=== PATIENT | female | born 1965 | race Caucasian/White ===

== ENCOUNTER 2019-04-29 16:04 | Outpatient (CLI) | payer OTHER, SELFPAY ==
--- NOTE | ~2019-04-29 | XR_ITS ---
EXAMINATION: XR foot LT min 3V DATE: 04/29/2019 16:38 INDICATION: Lateral left foot pain. TECHNIQUE: 4 views of left foot were obtained. COMPARISON: Left foot radiographs 02/14/2017, 11/10/2016 FINDINGS: Bone alignment is normal. No acute fracture. There is an old healed fracture of base of fif th metatarsal. There is mild osteoarthritis of first metatarsophalangeal joint and some of the interp halangeal joints and midfoot joints. IMPRESSION: 1. Mild polyarticular osteoarthritis. Reviewed, dictated and finalized at location A. [employer] PROJECT ASSISTANT
--- NOTE | ~2019-04-29 | XR_ITS ---
EXAMINATION: XR chest 2V DATE: 04/29/2019 16:38 INDICATION: Left lower lateral rib pain. Cough. Tobacco use. TECHNIQUE: Frontal and lateral views of the chest were obtained. COMPARISON: Chest 2 views 02/14/2017 FINDINGS: A calcified left lung nodule is consistent with old granulomatous disease. No pleural effus ion or pneumothorax. The heart size is normal. There is a moderate-sized hiatal hernia. IMPRESSION: 1. Moderate-sized hiatal hernia. Reviewed, dictated and finalized at location A. IGERATION LEAD
[2019-04-29 17:18] LABS: Hematocrit 43.1 % (37.0-47.0); Mean Corpuscular HGB Conc 32.5 g/dl (32-36); Mean Corpuscular Hemoglobin 31.6 pg (26-34); Mean Corpuscular Volume 97.3 fl (80-100); Mean Platelet Volume 10.8 fl (7.4-10.4); Platelet Count Result 396 k/mm3 (150-375); Red Blood Count 4.43 M/mm3 (4.2-5.4); Red Cell Distribution Width 12.9 % (11.5-14.5); White Blood Count 15.1 K/mm3 (4.5-10.0)
== END 2019-04-29 16:05 | disposition home or self-care (01) ==
LOC: ANHIMG 16:08
PROVIDERS: PCP Emergency Medicine; Visit Provider Emergency Medicine
DX: M79.672 Pain in left foot (principal); M19.072 Primary osteoarthritis, left ankle and foot; R05 Cough; R07.81 Pleurodynia; Z72.0 Tobacco use; K44.9 Diaphragmatic hernia without obstruction or gangrene
CPT/HCPCS: 36415; 71046; 73630; 85027

== ENCOUNTER 2019-04-30 11:52 | Emergency (ER) | payer OTHER, SELFPAY ==
[2019-04-30 11:55] VITALS: BP 120/68; PULSE 83; RESP 16; TEMP 36.3; O2SAT 99
[2019-04-30 12:21] VITALS: PULSE 71
[2019-04-30] MEDS: KETOROLAC (*BKC) 60 MG/2 ML VIAL IM (13:13)
--- NOTE | 2019-04-30 13:25 | ED.GENADULT ---
HPI - General Adult General Chief complaint: Unspecified Stated complaint: chest pain for 4 days Time Seen by Provider: 04/30/19 12:10 Source: patient Mode of arrival: ambulatory Limitations: no limitations History of Present Illness HPI narrative: Patient is a 54-year-old female who presents with upper back pain that occurred after coughing had outpatient radiograph performed by primary care which was done yesterday and was normal patient on arrival to emergency department notes some aching pain worse with breathing and coughing notes some rhinorrhea and congestion as well denies other injuries or complaints and on arrival is resting comfortably in the room in no distress and does not take anything for her symptoms and has plan to follow-up with primary care tomorrow for reevaluation for the x-rays taken yesterday Related Data Allergies Allergy/AdvReac Type Severity Reaction Status Date / Time Sulfa (Sulfonamide Allergy Unknown Verified 11/10/16 16:38 Antibiotics) Review of Systems Review of Systems: Narrative: r All systems reviewed & are unremarkable except as noted in HPI and below PMFSH Social History Social History (Updated 04/30/19 @ 13:27 by Ehsan Calderón PA-C) Smoking status: Current every day smoker Gender identity (if verbalized by the patient): Female Exam Narrative: Exam Narrative: GENERAL: Well-appearing, well-nourished, and in no acute distress. HEAD: Normocephalic, atraumatic. EYES: PERRLA and EOMI. ENT: Nares clear, no rhinorrhea or epistaxis. Mucous membranes moist. Oropharynx without tonsillar hypertrophy exudate or other lesions. Bilateral TMs pearly castillo nonbulging NECK: Supple. No adenopathy or masses. CHEST: Clear to auscultation. No respiratory distress. No wheezes rales or rhonchi HEART: Regular rate and rhythm. No murmur heard. EXTREMITIES: Normal range of motion. No edema. Tenderness across the upper back SKIN: Warm, dry, no rash. NEURO: No focal deficits. Alert and oriented x3. Cranial nerves II through XII grossly intact. Normal speech and gait. Neurovascularly intact PSYCH: Normal mood and affect. Course Course Emergency Course: Patient in the room in no distress felt appropriate for discharge home Vital Signs Vital signs: Vital Signs Temperature 97.4 F L 04/30/19 11:55 Pulse Rate 83 02/25/20 11:55 Respiratory Rate 16 04/30/19 11:55 Blood Pressure 120/68 04/30/19 11:55 Pulse Oximetry 99 04/30/19 11:55 Temperature 97.4 F L 04/30/19 11:55 Pulse Rate 71 04/30/19 12:21 Respiratory Rate 16 04/30/19 11:55 Blood Pressure 120/68 04/30/19 11:55 Pulse Oximetry 99 04/30/19 11:55 Medical Decision Making MDM Narrative Medical decision making narrative: Patient in the room in no distress afebrile nontoxic-appearing normal vital signs felt to be appropriate for outpatient reevaluation with likely strain of the upper back given the symptomology Vital Signs Vital Signs: Vital Signs Temperature 97.4 F L 04/30/19 11:55 Pulse Rate 83 04/30/19 11:55 Respiratory Rate 16 04/30/19 11:55 Blood Pressure 120/68 04/30/19 11:55 Pulse Oximetry 99 04/30/19 11:55 Temperature 97.4 F L 04/30/19 11:55 Pulse Rate 71 04/30/19 12:21 Respiratory Rate 16 04/30/19 11:55 Blood Pressure 120/68 04/30/19 11:55 Pulse Oximetry 99 04/30/19 11:55 Discharge Plan Discharge Clinical Impression: Acute upper respiratory infection Patient Disposition: Home, Self-Care Condition: Stable Instructions: Antibiotic Form Additional Instructions: Follow up with your primary care provider within 1-2 days. Go to ER for shortness of breath, difficulty breathing, chest pain, fever/chills, weakness, nauseau/vomitting, etc. or any other concerns. Take any prescribed medications as directed. If you do not have a drug allergy to tylenol or motrin and can tolerate it then take tylenol or motrin as needed for discomfort/pain. Pr
[2019-04-30 13:42] VITALS: BP 99/68; PULSE 68; RESP 16; O2SAT 97
== END 2019-04-30 13:50 | disposition home or self-care (01) ==
PROVIDERS: Emergency Provider Emergency Medicine; PCP Emergency Medicine
DX: J06.9 Acute upper respiratory infection, unspecified (principal); F17.210 Nicotine dependence, cigarettes, uncomplicated
CPT/HCPCS: 87804; 96372; 99283; J1885

== ENCOUNTER 2020-01-08 13:18 | Emergency (ER) | payer OTHER, SELFPAY ==
[2020-01-08 13:47] VITALS: BP 101/79; PULSE 93; RESP 17; TEMP 36.3; O2SAT 99
[2020-01-08] MEDS: HYDROGEN PEROXIDE 3% SOLN(*SP) 473 ML BOTTLE (13:53)
--- NOTE | 2020-01-08 14:29 | ED.EAR ---
HPI - Ear Problem General Chief complaint: Ear Stated complaint: bug in ear Time Seen by Provider: 01/08/20 13:25 Source: patient Mode of arrival: ambulatory Limitations: no limitations History of Present Illness HPI Narrative: Patient presents with chief complaint of foreign body sensation in her left ear after hanging falls on a close line. Patient states that she feels something moving around in her ear. Patient reports a month ago she had a mosquito in her right ear with fluid drops and things in it so she does not feel moving in the right ear anymore but wonders if there is some remnants. Patient denies fever, chills, nausea, vomiting, diarrhea, bleeding or drainage from the ear or any other symptoms. Related Data Allergies Allergy/AdvReac Type Severity Reaction Status Date / Time Sulfa (Sulfonamide Allergy Unknown Verified 11/10/16 16:38 Antibiotics) Review of Systems Review of Systems: Narrative: CONSTITUTIONAL: Denies fever, chills, or sweats. EYES: Denies visual changes, redness, or discharge. ENT: Reports foreign body sensation to the left ear denies rhinorrhea, congestion, sore throat CARDIOVASCULAR: Denies chest pain, palpitations, or edema. RESPIRATORY: Denies cough or dyspnea. GASTROINTESTINAL: Denies abdominal pain, nausea, vomiting, or diarrhea. GENITOURINARY: Denies dysuria or hematuria. SKIN: Denies rash or itching. MUSCULOSKELETAL: Denies back pain, myalgia, or joint pain NEUROLOGIC: Denies headache, numbness, dizziness, or weakness. PSYCHIATRIC: Denies anxiety or depression. [facility] Social History Social History (Updated 04/30/19 @ 13:27 by Ehsan Calderón PA-C) Smoking status: Current every day smoker Gender identity (if verbalized by the patient): Female Exam Narrative: Exam Narrative: GENERAL: Well-appearing, well-nourished, and in no acute distress. HEAD: Normocephalic, atraumatic. EYES: PERRLA and EOMI. ENT: Nares clear, no rhinorrhea or epistaxis. Mucous membranes moist. Oropharynx without tonsillar hypertrophy exudate or other lesions. Bilateral TMs pearly castillo nonbulging. Small amount of crusting in the right ear canal without erythema or swelling of the ear canal. Left ear canal now clean after the spider was flushed out. NECK: Supple. No adenopathy or masses. CHEST: No tachypnea or evidence of shortness of breath. No respiratory distress. EXTREMITIES: Normal range of motion. No edema. SKIN: Warm, dry, no rash. NEURO: No focal deficits. Alert and oriented x3. PSYCH: Normal mood and affect. Course Vital Signs Vital signs: Vital Signs Temperature 97.4 F L 01/08/20 13:47 Pulse Rate 93 01/08/20 13:47 Respiratory Rate 17 01/08/20 13:47 Blood Pressure 101/79 01/08/20 13:47 Pulse Oximetry 99 01/08/20 13:47 Temperature 97.4 F L 01/08/20 13:47 Pulse Rate 93 01/08/20 13:47 Respiratory Rate 17 01/08/20 13:47 Blood Pressure 101/79 01/08/20 13:47 Pulse Oximetry 99 01/08/20 13:47 Medical Decision Making MDM Narrative Medical decision making narrative: Patient states she continues to manage drops and things in her ears. Patient instructed not to put anything in her ears and have murmur regular reevaluate in 1 week, sooner if she has any questions or concerns. Patient directed to return to emergency department if she has any emergent symptoms. Vital Signs Vital Signs: Vital Signs Temperature 97.4 F L 01/08/20 13:47 Pulse Rate 93 01/08/20 13:47 Respiratory Rate 17 01/08/20 13:47 Blood Pressure 101/79 01/08/20 13:47 Pulse Oximetry 99 01/08/20 13:47 Temperature 97.4 F L 01/08/20 13:47 Pulse Rate 93 01/08/20 13:47 Respiratory Rate 17 01/08/20 13:47 Blood Pressure 101/79 01/08/20 13:47 Pulse Oximetry 99 01/08/20 13:47 Discharge Plan Discharge Clinical Impression: Acute foreign body of left ear Qualifiers: Encounter type: initial encounter Qualified Code(s): T16.2XXA - Foreign body in left ear, init
[2020-01-08 15:09] VITALS: BP 104/63; PULSE 98; RESP 15; O2SAT 100
== END 2020-01-08 15:11 | disposition home or self-care (01) ==
PROVIDERS: Emergency Provider Emergency Medicine; PCP Emergency Medicine
DX: T16.2XXA Foreign body in left ear, initial encounter (principal); F17.200 Nicotine dependence, unspecified, uncomplicated
CPT/HCPCS: 99282; A9270

== ENCOUNTER 2020-09-08 21:24 | Emergency (ER) | payer OTHER, SELFPAY ==
[2020-09-08 21:31] VITALS: BP 128/85; PULSE 116; RESP 16; TEMP 36.4; O2SAT 98
[2020-09-09 00:46] VITALS: BP 109/74; PULSE 81; RESP 18; TEMP 36.6; O2SAT 96
--- NOTE | 2020-09-09 00:49 | ED.ALLEREA ---
HPI - Allergic Reaction General Chief complaint: Allergic Reaction Stated complaint: bee sting Time Seen by Provider: 09/09/20 00:44 Source: patient and family Mode of arrival: ambulatory Limitations: no limitations History of Present Illness HPI narrative: Patient got stung by a bee at the ankle bilaterally 30 minutes prior to arrival to the emergency room. Which is roughly 8 hours ago. Currently patient is asymptomatic and concerned about the possibility of reaction. Patient denies any trouble swallowing, breathing, headache, palpitation, itching. Related Data Allergies Allergy/AdvReac Type Severity Reaction Status Date / Time Sulfa (Sulfonamide Allergy Unknown Unknown Verified 09/09/20 00:53 Antibiotics) Review of Systems Review of Systems: Narrative: CONSTITUTIONAL: Denies fever, chills, or sweats. EYES: Denies visual changes, redness, or discharge. ENT: Denies rhinorrhea, congestion, sore throat, or otalgia. CARDIOVASCULAR: Denies chest pain, palpitations, or edema. RESPIRATORY: Denies cough or dyspnea. GASTROINTESTINAL: Denies abdominal pain, nausea, vomiting, or diarrhea. GENITOURINARY: Denies dysuria or hematuria. SKIN: Denies rash or itching. MUSCULOSKELETAL: Denies back pain, joint pain, or myalgia. NEUROLOGIC: Denies headache, numbness, or weakness. PSYCHIATRIC: Denies anxiety or depression. REPLACED BY [facility] Social History Social History Smoking status: Current every day smoker Gender identity (if verbalized by the patient): Female Exam Narrative: Exam Narrative: General appearance: Well-developed, well-nourished Skin: Normal color, slight redness at the medial side of left ankle, not warm, slightly tender, consistent with local allergic reaction. Head: Normocephalic, nontraumatic Eyes: Clear conjunctiva ENT: Oropharynx normal, ears normal, nose normal Neck: Supple, nontender Chest and respiratory: Airway patent, no respiratory distress, no accessory muscle use Heart: Regular rate/rhythm Abdomen: Soft, nontender, no organomegaly, quiet bowel sounds Vascular: Normal peripheral pulses, normal capillary refill. Musculoskeletal: Normal range of motion, nontender back Neurologic: Alert and oriented ?3, Course Course Emergency Course: Stable Vital Signs Vital signs: Vital Signs Temperature 36.4 C 09/08/20 21:31 Pulse Rate 116 H 09/08/20 21:31 Respiratory Rate 16 09/08/20 21:31 Blood Pressure 128/85 09/08/20 21:31 Pulse Oximetry 98 09/08/20 21:31 Temperature 36.4 C 09/08/20 21:31 Pulse Rate 116 H 09/08/20 21:31 Respiratory Rate 16 09/08/20 21:31 Blood Pressure 128/85 09/08/20 21:31 Pulse Oximetry 98 09/08/20 21:31 MDM - Allergic Reaction MDM Narrative Medical decision making narrative: Bee sting with local allergic reaction Critical Care Time Critical Care Time Critical Care Time: No Discharge Plan Discharge Clinical Impression: Allergic reaction Qualifiers: Encounter type: subsequent encounter Qualified Code(s): T78.40XD - Allergy, unspecified, subsequent encounter Patient Disposition: Home, Self-Care Condition: Stable Instructions: Insect Bite or Sting (ED) Additional Instructions: Return if symptoms are worsening , call your family physician for appointment, take Tylenol as as needed for aches and pain, continue home medications. Prescriptions: New prednisone 20 mg tablet 40 mg PO DAILY 5 Days Qty: 10 RF: 0 No Action ibuprofen [IBU] 600 mg tablet 600 mg PO Q6H PRN (Reason: fever or pain) Qty: 7 RF: 0 Follow-up/Referrals: Osvaldo Marshall MD [Primary Care Provider] -
[2020-09-09] MEDS: diphenhydrAMINE HCl CAP 25 MG CAPSULE 50 MG PO (01:25)
[2020-09-09] MEDS: predniSONE 20 MG TABLET 60 MG PO (01:25)
[2020-09-09 01:29] VITALS: BP 110/79; PULSE 76; RESP 18; O2SAT 96
== END 2020-09-09 01:32 | disposition home or self-care (01) ==
PROVIDERS: Emergency Provider Emergency Medicine; PCP Emergency Medicine
DX: T63.441A Toxic effect of venom of bees, accidental (unintentional), initial encounter (principal); F17.200 Nicotine dependence, unspecified, uncomplicated
CPT/HCPCS: 99283; A9270; J7512

== ENCOUNTER 2020-12-18 12:55 | Outpatient (CLI) | payer OTHER, SELFPAY ==
--- NOTE | ~2020-12-18 | XR_ITS ---
XR chest 2V DATE: 12/18/2020 13:38 INDICATION: Left-sided chest pain, shortness of breath. Tobacco use. TECHNIQUE: PA and lateral views COMPARISON: April 29, 2021 view chest FINDINGS: Normal heart size. No hilar or mediastinal enlargement. There is mild discoid atelectasis or scarring in the right lower lobe. No pulmonary consolidation, pl eural effusion, pulmonary vascular congestion or pneumothorax. Calcified pulmonary granuloma, left lo wer lung. Moderate hiatal hernia. Diffuse osteopenia. IMPRESSION: Mild discoid atelectasis or scarring, right lower lobe; otherwise no active cardiac pulmo nary disease Hiatal hernia Reviewed, dictated and finalized at location A. IMPRESSION: Mild discoid atelectasis or scarring, right lower lobe; otherwise n o active cardiac pulmonary disease Hiatal hernia
== END 2020-12-18 12:56 | disposition home or self-care (01) ==
LOC: ANHIMG 13:03
PROVIDERS: PCP Emergency Medicine; Visit Provider Emergency Medicine
DX: Z72.0 Tobacco use (principal); J98.11 Atelectasis; K44.9 Diaphragmatic hernia without obstruction or gangrene
CPT/HCPCS: 71046

== ENCOUNTER 2020-12-24 16:53 | Emergency (ER) | payer OTHER, SELFPAY ==
--- NOTE | ~2020-12-24 | CT_ITS ---
EXAMINATION: CTA chest PE protocol DATE: 12/24/2020 19:25 INDICATION: Left-sided chest pain TECHNIQUE: Computed tomography angiography (CTA) of the chest was performed with 100 mL Omnipaque-350 intravenous contrast timed to evaluate the pulmonary arteries. Coronal maximum intensity projection 3D-reconstructions were created by the technologist. The dose-length product (DLP) was 286.37 mGy-cm. Automated exposure control and iterative reconstruction technique were employed. COMPARISON: None. FINDINGS: The pulmonary arteries are well-opacified. No pulmonary embolism is identified. There is de pendent atelectasis. No pleural effusion or pneumothorax is identified. There is a large hiatal herni a. No pathologically enlarged thoracic lymph nodes are identified. The heart size is normal. Cysts of the liver have enlarged and measure up to 4.8 cm in the right hepatic lobe. A healing left sixth rib fracture is noted. There is mild thoracic spondylosis. IMPRESSION: 1. No pulmonary embolism or acute cardiopulmonary abnormality. Reviewed, dictated and finalized at location A.
[2020-12-24 17:14] VITALS: BP 119/96; PULSE 91; RESP 18; TEMP 36.2; O2SAT 99
--- NOTE | 2020-12-24 17:51 | ED.GENADULT ---
HPI - General Adult General Chief complaint: Unspecified Stated complaint: Possible Blood Clot in the Lung Time Seen by Provider: 12/24/20 17:46 History of Present Illness HPI narrative: Patient 55-year-old female presents emerged part with chief complaint of left-sided chest wall pain. Patient reports that several weeks ago she fell struck the left side of her chest and reports that she has had rib pain since then. Patient states that she is seen her primary care physician who did an outpatient chest x-ray and told her there was concern for possible blood clot in her lungs. Patient states the pain has been worse with movement and improved with rest and reports she also has left-sided aching in her chest. Patient denies fever denies chills patient reports that she had no prior history of PEs in the past. Related Data Home Medications Medication Instructions Recorded Confirmed ergocalciferol (vitamin D2) 12/24/20 12/24/20 fluticasone propionate INTRANASAL 12/24/20 Allergies Allergy/AdvReac Type Severity Reaction Status Date / Time Sulfa (Sulfonamide Allergy Unknown Unknown Verified 12/24/20 17:46 Antibiotics) Review of Systems Review of Systems: A 10 system review of systems was completed on the patient and is negative except for what is stated in the HPI. Nursing and ancillary documentation was reviewed. [facility] Social History Social History Smoking status: Current every day smoker Gender identity (if verbalized by the patient): Female Exam Narrative: GENERAL: Well-appearing, well-nourished, and in no acute distress. HEAD: Normocephalic, atraumatic. EYES: PERRLA and EOMI. ENT: Nares clear, no rhinorrhea or epistaxis. Mucous membranes moist. NECK: Supple. CHEST: Clear to auscultation. No respiratory distress. Chest wall is tender to palpation on the left side. There is no subcu emphysema there is no crepitance HEART: Regular rate and rhythm. No murmur heard. Normal peripheral pulses. ABDOMEN: Soft, nontender, nondistended, normal active bowel sounds. EXTREMITIES: Normal range of motion. No edema. SKIN: Warm, dry, no rash. NEURO: No focal deficits. Alert and oriented x3. PSYCH: Normal mood and affect. Course Course Emergency Course: CT scan shows no evidence of pulmonary contusion, hemothorax, pneumothorax. There is evidence of a left sided sixth rib fracture Vital Signs Vital signs: Vital Signs Temperature 36.2 C L 12/24/20 17:14 Pulse Rate 91 12/24/20 17:14 Respiratory Rate 18 12/24/20 17:14 Blood Pressure 119/96 H 12/24/20 17:14 Pulse Oximetry 99 12/24/20 17:14 Temperature 36.2 C L 12/24/20 17:14 Pulse Rate 60 12/24/20 18:40 Respiratory Rate 16 12/24/20 18:40 Blood Pressure 128/73 12/24/20 18:40 Pulse Oximetry 96 12/24/20 18:40 Medical Decision Making Vital Signs Vital Signs: Vital Signs Temperature 36.2 C L 12/24/20 17:14 Pulse Rate 91 12/24/20 17:14 Respiratory Rate 18 12/24/20 17:14 Blood Pressure 119/96 H 12/24/20 17:14 Pulse Oximetry 99 12/24/20 17:14 Temperature 36.2 C L 12/24/20 17:14 Pulse Rate 60 12/24/20 18:40 Respiratory Rate 16 12/24/20 18:40 Blood Pressure 128/73 12/24/20 18:40 Pulse Oximetry 96 12/24/20 18:40 Lab Data Result diagrams: 12/24/20 18:20 12/24/20 18:20 Labs: Lab Results 12/24/20 12/24/20 12/24/20 Range/Units 18:20 18:20 18:20 WBC 10.6 H (4.5-10.0) K/mm3 RBC 4.27 (4.2-5.4) M/mm3 Hgb 13.9 (12.0-15.0) g/dL Hct 40.7 (37.0-47.0) % MCV 95.3 (80-100) fl MCH 32.6 (26-34) pg MCHC 34.2 (32-36) g/dl RDW 12.4 (11.5-14.5) % Plt Count 409 H (150-375) k/mm3 MPV 9.8 (7.4-10.4) fl Immature Gran % (Auto) 0.3 (0-0.5) % Neut % (Auto) 58.9 (45.5-73.1) % Lymph % (Auto) 32.9 (18.3-44.2) % [place] % (Auto) 5.6 (2.6-8.5) % Eos % (Auto) 1
--- NOTE | 2020-12-24 17:52 | ECG_ITS ---
Measurements Intervals [place] Rate: 54 P: 11 DE: 183 QRS: 46 QRSD: 91 T: 34 QT: 431 QTc: 411 Interpretive Statements SINUS BRADYCARDIA WITH SINUS ARRHYTHMIA MINIMAL Q WAVES- INF/LAT LEADS BASELINE ARTIFACT- I, III, AVL BORDERLINE ECG Electronically Signed On 12-24-2020 20:04:25 CDT by Mikal Gan D.O.
[2020-12-24] MEDS: SODIUM CHLORIDE 0.9% IV 1,000 ML 999 ML IV CONT (18:25)
--- NOTE | 2020-12-24 18:34 | PC.NURSE ---
Moved to room #4 for groundwater monitoring technician
[2020-12-24 18:40] VITALS: BP 128/73; PULSE 60; RESP 16; O2SAT 96
[2020-12-24 18:40] LABS: Alanine Aminotransferase 21 U/L (4-35); Albumin Level 4.4 g/dL (3.5-5.1); Alkaline Phosphatase 90 U/L (38-126); Anion Gap 8 mmol/L (8-16); Aspartate Amino Transferase 24 U/L (14-36); Bilirubin,Total 0.4 mg/dL (0.2-1.3); Blood Urea Nitrogen 6 mg/dL (7-17); Calcium 9.7 mg/dL (8.4-10.2); Carbon Dioxide 26 mmol/L (22-30); Chloride 105 mmol/L (98-107); Estimated CRCL calculation 82 ml/min; Estimated Glomerular Filt Rate > 60; Glucose 100 mg/dL (65-110); Potassium 4.2 mmol/L (3.4-5.0); Sodium 139 mmol/L (137-145)
[2020-12-24 18:48] LABS: Basophils Absolute Auto 0.1 K/mm3 (0.0-0.1); Basophils Percent Auto 0.6 % (0.2-1.2); Eosinophils Absolute Auto 0.2 K/mm3 (0-0.3); Eosinophils Percent Auto 1.7 % (0-4.4); Hematocrit 40.7 % (37.0-47.0); Hemoglobin 13.9 g/dL (12.0-15.0); Immature Granulocyte Absolute 0.03 K/mm3 (0.00-0.031); Immature Granulocyte Percent A 0.3 % (0-0.5); Lymphocytes Absolute Auto 3.48 K/mm3 (0.9-3.2); Lymphocytes Percent Auto 32.9 % (18.3-44.2); Mean Corpuscular HGB Conc 34.2 g/dl (32-36); Mean Corpuscular Hemoglobin 32.6 pg (26-34); Mean Corpuscular Volume 95.3 fl (80-100); Mean Platelet Volume 9.8 fl (7.4-10.4); Monocytes Absolute Auto 0.6 K/mm3 (0.1-0.6); Monocytes Percent Auto 5.6 % (2.6-8.5); Neutrophils Absolute Auto 6.3 K/mm3 (1.3-6.7); Neutrophils Percent Auto 58.9 % (45.5-73.1); Platelet Count Result 409 k/mm3 (150-375); Red Blood Count 4.27 M/mm3 (4.2-5.4); Red Cell Distribution Width 12.4 % (11.5-14.5); White Blood Count 10.6 K/mm3 (4.5-10.0)
[2020-12-24 18:51] LABS: Troponin I < 0.012 ng/mL (0.000-0.034)
[2020-12-24 18:53] LABS: INR 0.9; Prothrombin Time 12.1 Seconds (11.1-14.7)
[2020-12-24 18:54] LABS: Partial Thromboplastin Time 26.1 SECONDS (22.3-36.8)
[2020-12-24 19:03] LABS: Add Urine Microscopic? YES; Appearance Urine Clear (Clear); Bilirubin Urine Negative (Negative); Blood Urine 1+ (Negative); Color Urine Yellow (Yellow); Glucose Urine UA Negative (Negative); Ketones Urine Negative (Negative); Leukocyte Esterase Ur Negative LEU/UL (Negative); Mucus Urine Rare /lpf; Nitrate Urine Negative (Negative); Protein Urine Negative (Negative); Specific Grav Ur 1.013 (1.001-1.035); Squamous Epithelial Cell Urine Moderate /hpf (Few); Urobilinogen Urine Negative mg/dL (<2.0); WBC Urine 0-3 /hpf
[2020-12-24 19:27] VITALS: BP 119/73; PULSE 68; RESP 22; O2SAT 97
--- NOTE | 2020-12-24 19:27 | PC.NURSE ---
Assumed care of pt at this time, pt alert and upright on stretcher. Denies SOB, but c/o CP that worsens with inspiration. Pt updated on POC.
[2020-12-24 20:28] VITALS: BP 116/70; PULSE 83; RESP 12; O2SAT 98
== END 2020-12-24 20:30 | disposition home or self-care (01) ==
PROVIDERS: Emergency Provider Emergency Medicine; PCP Emergency Medicine
DX: S22.32XA Fracture of one rib, left side, initial encounter for closed fracture (principal); F17.200 Nicotine dependence, unspecified, uncomplicated; R00.1 Bradycardia, unspecified; W01.10XA Fall on same level from slipping, tripping and stumbling with subsequent striking against unspecified object, initial encounter
CPT/HCPCS: 36415; 71275; 80053; 81001; 81025; 84484; 85025; 85610; 85730; 93005; 96360; 96361; 99284; J7030; Q9967

== ENCOUNTER 2021-06-11 16:59 | Emergency (ER) | payer OTHER, SELFPAY ==
--- NOTE | ~2021-06-11 | XR_ITS ---
XR chest 2V DATE: 06/11/2021 17:53 INDICATION: Cough, headache, sinus drainage TECHNIQUE: PA and lateral views COMPARISON: 12/24/2020 CT pulmonary scan 12/18/2020 2 view chest FINDINGS: Normal heart size. No hilar or mediastinal enlargement. There is mild discoid atelectasis or scarring at the lung bases. Otherwise no pulmonary infiltrate or consolidation, pleural effusion or pulmonary vascular congestion or pneumothorax is detected. Diffuse osteopenia. IMPRESSION: Mild bibasilar discoid atelectasis or scarring Osteopenia Reviewed, dictated and finalized at location A.
--- NOTE | ~2021-06-11 | CT_ITS ---
EXAMINATION: CT abdomen pelvis w con DATE: 06/11/2021 19:06 INDICATION: Lower abdominal pain, diarrhea for 2 weeks. Fever. TECHNIQUE: Computed tomography (CT) of the abdomen and pelvis was performed with 100 CC Omnipaque 350 intravenous contrast. Automated exposure control and iterative reconstruction technique were employe d. Exam dose: 513.02 mGy-cm total exam DLP. COMPARISON: 07/04/2007 CT abdomen FINDINGS: There is mild atelectasis in the lower lung zones. Heart size is within normal range. No pe ricardial or pleural effusion. There is a moderately large hiatal hernia. There are multiple hepatic cysts, the largest measuring up to 5.4 cm. Normal splenic size. No pancrea tic mass lesion, calcification or ductal dilatation. The gallbladder is unremarkable. No bile duct dilatation. Normal morphology of the adrenal glands. 9 mm lower pole left renal cyst. 5 mm probable mid right renal angiomyolipoma. No urinary tract calculus or hydroureteronephrosis. The urinary bladder is relatively evacuated, othe rwise unremarkable. The uterus and adnexal areas are unremarkable. Normal caliber of the abdominal aorta. No intraperitoneal or retroperitoneal or pelvic mass lesion or adenopathy or ascites. Normal appendix. There are numerous diverticula of the left colon diverticula in the sigmoid and distal descending col on. There is diffuse thickening of the wall with color suggesting colitis; consider ulcerative colitis or other inflammatory bowel disease versus infectious colitis. Ischemic colitis is considered quite unl ikely given the lack of any significant stenosis of the celiac and mesenteric arteries. Small fat-containing umbilical hernia. Included skeletal structures are unremarkable. IMPRESSION: Multiple hepatic cysts 9 mm left renal cyst Probable small right renal angiomyolipoma Diverticulosis of the left colon Diffuse thickening of the colonic wall, suggesting infectious or inflammatory colitis Normal appendix Reviewed, dictated and finalized at [facility]. Reviewed, dictated and finalized at location [facility]. IMPRESSION: Multiple hepatic cysts 9 mm left renal cyst Probable small right renal angiomyolipoma Diverticulosis of the left colon Diffuse thickening of the colonic wall, suggesting infectious or inflammatory c olitis Normal appendix
[2021-06-11 17:02] VITALS: BP 122/80; PULSE 131; RESP 18; TEMP 36.5; O2SAT 97
--- NOTE | 2021-06-11 17:33 | ED.GENADULT ---
HPI - General Adult General Chief complaint: Headache Stated complaint: dehydration Time Seen by Provider: 06/11/21 17:09 History of Present Illness HPI narrative: 56-year-old female presents the emergency room with multiple complaints. Patient states that for several months she has been experiencing sinus congestion, postnasal drip, cough, and sneezing. Patient was seen at her PCPs office and diagnosed with a sinus infection over 4 weeks ago. Patient has completed 2 courses of antibiotics, and now complains of diarrhea. Patient also complains of body aches, headache, abdominal cramping, and a cough at this time. Patient states that she had a fever of over 103 yesterday. Patient is currently afebrile Related Data Home Medications Medication Instructions Recorded Confirmed ergocalciferol (vitamin D2) 12/24/20 12/24/20 fluticasone propionate INTRANASAL 12/24/20 Allergies Allergy/AdvReac Type Severity Reaction Status Date / Time Sulfa (Sulfonamide Allergy Unknown Unknown Verified 12/24/20 17:46 Antibiotics) Review of Systems Review of Systems: CONSTITUTIONAL: Reports fever, chills, or sweats, body aches EYES: Denies visual changes, redness, or discharge. ENT: Reports rhinorrhea, congestion CARDIOVASCULAR: Denies chest pain, palpitations, or edema. RESPIRATORY: Reports cough GASTROINTESTINAL: Reports abdominal pain, and diarrhea. GENITOURINARY: Reports hematuria. SKIN: Denies rash or itching. MUSCULOSKELETAL: Denies back pain, joint pain, or myalgia. NEUROLOGIC: Denies headache, numbness, dizziness, or weakness. PSYCHIATRIC: Denies anxiety or depression. PMFSH Surgical History Surgical History H/O hernia repair Family History Family History Sibling Cerebrovascular accident Social History Social History Smoking packs per day: 1 Smoking cigarettes per day: 20.0 Years smoked: 30 Smoking pack-years: 30.00 Smoking status: Current every day smoker Gender identity (if verbalized by the patient): Female Exam Narrative: GENERAL: Well-appearing, well-nourished, and in no acute distress. HEAD: Normocephalic, atraumatic. EYES: PERRLA and EOMI. ENT: Nares clear, no rhinorrhea or epistaxis. Mucous membranes moist. Oropharynx without tonsillar hypertrophy exudate. NECK: Supple. No adenopathy or masses. No carotid bruits or JVD CHEST: Coarse breath sounds HEART: Regular rate and rhythm. No murmur heard. Normal peripheral pulses. ABDOMEN: Soft, left upper and left lower quadrant tenderness, nondistended, normal active bowel sounds. EXTREMITIES: Normal range of motion. No edema. SKIN: Warm, dry, no rash. NEURO: No focal deficits. Alert and oriented x3. PSYCH: Normal mood and affect. Course Vital Signs Vital signs: Vital Signs Temperature 36.5 C 06/11/21 17:02 Pulse Rate 131 H 06/11/21 17:02 Respiratory Rate 18 06/11/21 17:02 Blood Pressure 122/80 06/11/21 17:02 Pulse Oximetry 97 06/11/21 17:02 Temperature 36.9 C 06/11/21 20:18 Pulse Rate 92 06/11/21 20:18 Respiratory Rate 18 06/11/21 20:18 Blood Pressure 126/80 06/11/21 20:18 Pulse Oximetry 100 06/11/21 20:18 Medical Decision Making [facility] Narrative Medical decision making narrative: 56-year-old female presents emergency room with multiple complaints. Patient was sent here from her PCPs office for suspected dehydration diagnosed by a urinalysis. CBC showed a elevated white count of 21.4. CT scan showed suggested infectious versus inflammatory colitis. Given that the patient was on 2 rounds of antibiotics for upper respiratory infection recently, as an elevated white count, patient is likely experiencing infectious colitis. Patient was given 1 dose of IV Cipro during her ER stay. Vital Signs Vital Signs: Vital Signs Temperature 36.5 C
[2021-06-11] MEDS: SODIUM CHLORIDE 0.9% IV 1,000 ML 999 ML IV CONT (17:41)
[2021-06-11] MEDS: KETOROLAC 30 MG/ML VIAL (*BKC) IV PUSH (17:42)
[2021-06-11 17:51] LABS: Basophils Absolute Auto 0.1 K/mm3 (0.0-0.1); Basophils Percent Auto 0.4 % (0.2-1.2); Eosinophils Percent Auto 0.2 % (0-4.4); Hematocrit 40.9 % (37.0-47.0); Hemoglobin 13.4 g/dL (12.0-15.0); Immature Granulocyte Absolute 0.09 K/mm3 (0.00-0.031); Immature Granulocyte Percent A 0.4 % (0-0.5); Lymphocytes Absolute Auto 2.09 K/mm3 (0.9-3.2); Lymphocytes Percent Auto 9.8 % (18.3-44.2); Mean Corpuscular HGB Conc 32.8 g/dl (32-36); Mean Corpuscular Hemoglobin 31.2 pg (26-34); Mean Corpuscular Volume 95.3 fl (80-100); Mean Platelet Volume 9.6 fl (7.4-10.4); Monocytes Absolute Auto 2.3 K/mm3 (0.1-0.6); Monocytes Percent Auto 10.8 % (2.6-8.5); Neutrophils Absolute Auto 16.8 K/mm3 (1.3-6.7); Neutrophils Percent Auto 78.4 % (45.5-73.1); Platelet Count Result 291 k/mm3 (150-375); Red Blood Count 4.29 M/mm3 (4.2-5.4); Red Cell Distribution Width 12.6 % (11.5-14.5); White Blood Count 21.4 K/mm3 (4.5-10.0)
[2021-06-11 18:02] LABS: Add Urine Microscopic? YES; Appearance Urine Cloudy (Clear); Bacteria Urine Trace /hpf; Bilirubin Urine Negative (Negative); Blood Urine 3+ (Negative); Color Urine Yellow (Yellow); Glucose Urine UA 1+ mg/dL (Negative); Ketones Urine Negative (Negative); Leukocyte Esterase Ur 2+ LEU/UL (Negative); Mucus Urine Moderate /lpf; Nitrate Urine Negative (Negative); Protein Urine 1+ mg/dL (Negative); Specific Grav Ur 1.017 (1.001-1.035); Squamous Epithelial Cell Urine Many /hpf (Few); Urobilinogen Urine Negative mg/dL (<2.0); WBC Urine 31-50 /hpf
[2021-06-11 18:04] LABS: Alanine Aminotransferase 16 U/L (4-35); Albumin Level 3.9 g/dL (3.5-5.1); Alkaline Phosphatase 73 U/L (38-126); Anion Gap 7 mmol/L (8-16); Aspartate Amino Transferase 20 U/L (14-36); Bilirubin,Total 0.5 mg/dL (0.2-1.3); Blood Urea Nitrogen 7 mg/dL (7-17); Carbon Dioxide 25 mmol/L (22-30); Chloride 103 mmol/L (98-107); Estimated CRCL calculation 82 ml/min; Estimated Glomerular Filt Rate > 60; Glucose 125 mg/dL (65-110); Potassium 3.6 mmol/L (3.4-5.0); Sodium 135 mmol/L (137-145)
[2021-06-11 18:30] LABS: SARS-CoV-2 RNA PCR Negative
[2021-06-11 19:04] VITALS: BP 116/74; PULSE 92; RESP 16; TEMP 37.1; O2SAT 100
[2021-06-11 20:18] VITALS: BP 126/80; PULSE 92; RESP 18; TEMP 36.9; O2SAT 100
[2021-06-11] MEDS: CIPROFLOXACIN 400 MG/D5W 200ML 200 ML 200 MG IVPB (20:30)
[2021-06-11 21:00] VITALS: PULSE 90; RESP 18; TEMP 36.9; O2SAT 98
[2021-06-11] MEDS: ONDANSETRON INJ 4 MG/2 ML VIAL IV PUSH (21:30)
[2021-06-15 09:38] LABS: Influenza A QL RT-PCR Negative (Negative)
[2021-06-15 09:39] LABS: Influenza B QL RT-PCR Negative (Negative)
== END 2021-06-11 21:49 | disposition home or self-care (01) ==
PROVIDERS: Emergency Medicine; Emergency Provider Nurse Practitioner Family; PCP Emergency Medicine
DX: A09 Infectious gastroenteritis and colitis, unspecified (principal); Z20.822 Contact with and (suspected) exposure to COVID-19; N28.1 Cyst of kidney, acquired; K57.90 Diverticulosis of intestine, part unspecified, without perforation or abscess without bleeding; M85.88 Other specified disorders of bone density and structure, other site
CPT/HCPCS: 36415; 71046; 74177; 80053; 81001; 85025; 87086; 87088; 87502; 96361; 96365; 96375; 99284; C9803; J0744; J1885; J2405; J7030; Q9967; U0003; U0005

== ENCOUNTER 2021-09-23 18:53 | Emergency (ER) | payer OTHER, SELFPAY ==
[2021-09-23] VITALS (11 sets, daily range): BP systolic 105–147; BP diastolic 61–82; PULSE 61–96; RESP 12–20; TEMP 36.7; O2SAT 96–99
--- NOTE | ~2021-09-23 | XR_ITS ---
EXAMINATION: XR chest 2V DATE: 09/23/2021 19:25 INDICATION: Left chest pain. Shortness of breath. TECHNIQUE: Frontal and lateral views of the chest were obtained. COMPARISON: Chest 2 views 06/11/2021, CT abdomen and pelvis 06/11/2021 FINDINGS: A calcified left lung nodule is consistent with old granulomatous disease. No pleural effus ion or pneumothorax. The heart size is normal. There is a moderate-sized hiatal hernia. IMPRESSION: 1. Moderate-sized hiatal hernia. Reviewed, dictated and finalized at location [facility].
--- NOTE | 2021-09-23 18:55 | ECG_ITS ---
Measurements Intervals [place] Rate: 77 P: 15 ND: 162 QRS: 45 QRSD: 86 T: 29 QT: 364 QTc: 413 Interpretive Statements SINUS RHYTHM MINIMAL Q WAVES- INFERIOR LEADS BORDERLINE ECG Electronically Signed On 09-23-2021 20:26:51 CDT by Mikal Gan D.O.
[2021-09-23 19:08] LABS: Basophils Absolute Auto 0.1 K/mm3 (0.0-0.1); Basophils Percent Auto 0.7 % (0.2-1.2); Eosinophils Absolute Auto 0.2 K/mm3 (0-0.3); Eosinophils Percent Auto 1.8 % (0-4.4); Hematocrit 43.5 % (37.0-47.0); Hemoglobin 14.2 g/dL (12.0-15.0); Immature Granulocyte Absolute 0.04 K/mm3 (0.00-0.031); Immature Granulocyte Percent A 0.3 % (0-0.5); Lymphocytes Absolute Auto 3.26 K/mm3 (0.9-3.2); Lymphocytes Percent Auto 28.4 % (18.3-44.2); Mean Corpuscular HGB Conc 32.6 g/dl (32-36); Mean Corpuscular Hemoglobin 30.7 pg (26-34); Mean Platelet Volume 10.1 fl (7.4-10.4); Monocytes Absolute Auto 0.6 K/mm3 (0.1-0.6); Monocytes Percent Auto 4.9 % (2.6-8.5); Neutrophils Absolute Auto 7.3 K/mm3 (1.3-6.7); Neutrophils Percent Auto 63.9 % (45.5-73.1); Platelet Count Result 380 k/mm3 (150-375); Red Blood Count 4.63 M/mm3 (4.2-5.4); Red Cell Distribution Width 13.2 % (11.5-14.5); White Blood Count 11.5 K/mm3 (4.5-10.0)
[2021-09-23 19:19] LABS: Alanine Aminotransferase 23 U/L (6-35); Albumin Level 4.3 g/dL (3.5-5.1); Alkaline Phosphatase 82 U/L (38-126); Anion Gap 5 mmol/L (8-16); Aspartate Amino Transferase 23 U/L (14-36); Bilirubin,Total 0.5 mg/dL (0.2-1.3); Blood Urea Nitrogen 9 mg/dL (7-17); Calcium 9.4 mg/dL (8.4-10.2); Carbon Dioxide 27 mmol/L (22-30); Chloride 109 mmol/L (98-107); Estimated CRCL calculation 80 ml/min; Estimated Glomerular Filt Rate > 60; Glucose 144 mg/dL (65-110); Lipase 115 U/L (23-300); Potassium 3.8 mmol/L (3.4-5.0); Prothrombin Time 12.4 Seconds (11.1-14.7); Sodium 141 mmol/L (137-145)
[2021-09-23 19:21] LABS: Partial Thromboplastin Time 26.1 SECONDS (22.3-36.8)
[2021-09-23 19:29] LABS: Troponin I < 0.012 ng/mL (0.000-0.034)
--- NOTE | 2021-09-23 22:20 | ED.CHESTPAIN ---
HPI - Chest Pain General Chief Complaint: Chest Pain <KUN Shea Last Filed: 09/24/21 02:52> Stated Complaint: Chest Pain x2 Days <KUN Shea Last Filed: 09/24/21 02:52> Time Seen by Provider: 09/23/21 22:19 <KUN Shea Last Filed: 09/24/21 02:52> History of Present Illness HPI narrative: Patient is a 56-year-old female here for evaluation of chest pain over the past 3 days. Patient states that the pain is sharp in nature, is around her left breast, and is also occasionally having pain in her back. The pain is not worse with certain positions, is intermittent in nature, not provoked by exertion. She took ibuprofen yesterday with mild relief of her symptoms. Denies fevers, chills, shortness of breath, cough. No history of connective tissue disease. She was sent by her PCP to the ED today. <KUN Shea Last Filed: 09/24/21 02:52> Related Data Home Medications: Home Medications Medication Instructions Recorded Confirmed ergocalciferol (vitamin D2) 1,250 12/24/20 12/24/20 mcg (50,000 unit) capsule fluticasone propionate 50 intranasal 12/24/20 mcg/actuation nasal spray,suspension <KUN Shea Last Filed: 09/24/21 02:52> Allergies/Adverse Reactions: Allergies Allergy/AdvReac Type Severity Reaction Status Date / Time Sulfa (Sulfonamide Allergy Unknown Unknown Verified 12/24/20 17:46 Antibiotics) <KUN Shea Last Filed: 09/24/21 02:52> Review of Systems Review of Systems: Gen: Denies fevers or chills Eyes: Denies eye pain or visual change ENT: Denies congestion Respiratory: Denies shortness of breath or cough CV: reports chest pain GI: Denies abdominal pain nausea, emesis or diarrhea denies burning, urgency, frequency or hematuria Musculoskeletal: Denies back pain or muscle pain Neuro: Denies numbness, tingling, weakness or focal weakness Skin: Denies rash Except as documented, all other systems reviewed and negative <Tamy Prieto PA-C - Last Filed: 09/24/21 02:52> [facility] Surgical History Surgical History: Surgical History H/O hernia repair <Tamy Prieto PA-C - Last Filed: 09/24/21 02:52> Family History Family History: Family History Sibling Cerebrovascular accident <Tamy Prieto PA-C - Last Filed: 09/24/21 02:52> Social History Social History: Social History Smoking packs per day: 1 Smoking cigarettes per day: 20.0 Years smoked: 30 Smoking pack-years: 30.00 Smoking status: Current every day smoker Gender identity (if verbalized by the patient): Female <Tamy Prieto PA-C - Last Filed: 09/24/21 02:52> Exam Narrative: APPEARANCE: Well appearing, no pain in distress, well-nourished. Head: Normocephalic and atraumatic. EYES: PERRLA/EOMI, conjunctivae clear NOSE: No nasal drainage EARS: External ear normal in appearance THROAT: Oropharynx is clear. Mucous membranes are moist. NECK: Supple. No adenopathy, no masses. RESPIRATORY: Expiratory wheezing. Airway patent, respirations nonlabored. Clear to auscultation bilaterally, no rales, rhonchi, wheezing. CARDIOVASCULAR: Regular rate and rhythm without murmurs, rubs, or gallops. ABDOMINAL: Normoactive bowel sounds. Soft, nontender, nondistended. No rebound tenderness or guarding. MUSCULOSKELETAL: Extremities are warm and well-perfused. Moves all extremities well. No edema. NEURO: Normal speech. No focal neurologic deficits. SKIN: Skin is warm and dry. No rashes. PSYCHIATRIC: Normal affect/mood. <Tamy Prieto PA-C - Last Filed: 09/24/21 02:52> Course COLD WORK OPERATOR/PA Physician Supervision For this patient encounter, I reviewed the COLD WORK OPERATOR or PA docum
[2021-09-23] MEDS: ALBUTEROL SULFATE NEB 2.5 MG/3 ML INH INHALATION (22:47)
[2021-09-23 23:19] LABS: D Dimer 0.33 ug/mL (<0.48); Troponin I < 0.012 ng/mL (0.000-0.034)
[2021-09-24] VITALS: PULSE 75; RESP 14; O2SAT 99
[2021-09-24 00:02] VITALS: PULSE 82; RESP 15; O2SAT 98
[2021-09-24 00:15] VITALS: PULSE 76; RESP 19
[2021-09-24 00:16] VITALS: BP 106/69; PULSE 77; RESP 17
[2021-09-24 00:30] VITALS: PULSE 77; RESP 17; O2SAT 100
== END 2021-09-24 00:35 | disposition home or self-care (01) ==
PROVIDERS: Emergency Medicine; Physician Assistant; Emergency Provider Emergency Medicine; PCP Emergency Medicine
DX: R07.89 Other chest pain (principal); F17.210 Nicotine dependence, cigarettes, uncomplicated; R94.31 Abnormal electrocardiogram [ECG] [EKG]
CPT/HCPCS: 36415; 71046; 80053; 83690; 84484; 85025; 85380; 85610; 85730; 93005; 94640; 99284

== ENCOUNTER 2022-04-13 15:23 | Outpatient (CLI) | payer OTHER, SELFPAY ==
--- NOTE | ~2022-04-13 | MM_ITS ---
EXAMINATION: MM screening [facility] BI w jeffy HISTORY: Screening mammogram TECHNIQUE: Craniocaudal and mediolateral oblique 3-D tomosynthesis images were obtained and synthetic 2-D images were generated. CAD analysis was submitted and interpreted. COMPARISON: 03/14/2017 diagnostic bilateral mammography and complete bilateral breast ultrasound examin ation BREAST PARENCHYMAL COMPOSITION: The breasts are heterogeneously dense, which may obscure small masses . FINDINGS: There is suggestion of asymmetric increased density in the upper outer left breast since ; diagnostic left mammogram and left breast ultrasound examination are recommended. Otherwise there is no evidence of suspicious mass, calcification, or architectural distortion to sugg est malignancy in either breast. There has been no other suspicious interval change. IMPRESSION: 1. Suggestion of interval asymmetric increased density in the upper outer left breast 2. Diagnostic left mammogram and left breast ultrasound examination are recommended BI-RADS Category 0: Incomplete: Needs additional imaging evaluation. Reviewed, dictated and finalized at location A. URE BUILDER IMPRESSION: 1. Suggestion of interval asymmetric increased density in the upper outer left breast 2. Diagnostic left mammogram and left breast ultrasound examination are recomme nded BI-RADS Category 0: Incomplete: Needs additional imaging evaluation.
== END 2022-04-13 15:24 | disposition home or self-care (01) ==
LOC: ANHIMG 15:26
PROVIDERS: PCP Emergency Medicine; Visit Provider Emergency Medicine
DX: Z12.31 Encounter for screening mammogram for malignant neoplasm of breast (principal); R92.8 Other abnormal and inconclusive findings on diagnostic imaging of breast
CPT/HCPCS: 77063; 77067

== ENCOUNTER 2022-08-26 11:36 | Outpatient (CLI) | payer OTHER, SELFPAY ==
--- NOTE | ~2022-08-26 | MMUS_ITS ---
EXAMINATION: MM diagnostic elisa LT w jeffy, US breast LT complete HISTORY: Abnormal April 13, 2022 screening mammogram TECHNIQUE: Full field and spot 3-D tomosynthesis images of both breasts were performed and synthetic 2-D images were generated. CAD analysis was submitted and interpreted. High resolution complete left breast ultrasound examination including all 4 quadrants and subareolar area was performed. COMPARISON: April 2022 bilateral screening mammogram BREAST PARENCHYMAL COMPOSITION: The breasts are heterogeneously dense, which may obscure small masses . FINDINGS: MAMMOGRAPHIC FINDINGS: Multiple circumscribed breast masses are suggested but are obscured to a significant extent due to th e heterogeneously dense stroma. No architectural distortion, malignant calcification, skin thickening or retraction is detected. ULTRASOUND: There are multiple cysts scattered in the left breast, some simple, some septated and occasional comp licated cysts, with circumscribed margins , through transmission, posterior enhancement, no internal vascularity. The largest measures approximately 1.4 cm maximal dimension. No suspicious mass or shadowing is detected. IMPRESSION: 1. Benign findings 2. Routine annual mammographic screening is recommended BI-RADS Category 2: Benign finding(s). Reviewed, dictated and finalized at location [facility]. IMPRESSION: 1. Benign findings 2. Routine annual mammographic screening is recommended BI-RADS Category 2: Benign finding(s).
== END 2022-08-26 11:37 | disposition home or self-care (01) ==
LOC: ANHIMG 11:38
PROVIDERS: PCP Emergency Medicine; Visit Provider Emergency Medicine
DX: R92.8 Other abnormal and inconclusive findings on diagnostic imaging of breast (principal)
CPT/HCPCS: 76641; 77061; 77065; G0279

== ENCOUNTER 2022-10-18 12:32 | Emergency (ER) | payer OTHER, SELFPAY ==
--- NOTE | ~2022-10-18 | CT_ITS ---
EXAMINATION: CT abdomen pelvis w con DATE: 10/18/2022 13:48 INDICATION: Right abdominal pain. TECHNIQUE: Computed tomography (CT) of the abdomen and pelvis was performed with 100 mL Omnipaque 350 intravenous contrast. Automated exposure control and iterative reconstruction technique were employe d. The dose-length product was 604.67 mGy-cm. COMPARISON: CT abdomen and pelvis 06/11/2021 FINDINGS: The visualized portions of the lung bases demonstrate mild atelectasis. No pleural effusion . The heart size is normal. There is a large sliding hiatal hernia. There are cysts in the liver radha uring up to 5.7 cm. The gallbladder is normal in size. Calcifications in the spleen are consistent wi th old granulomatous disease. There is partial pancreas divisum. The adrenal glands are normal. There are cysts in the kidneys measuring up to 11 mm on the left. There are no dilated loops of bowel. The re is diverticulosis of the colon without evidence of diverticulitis. There is fat stranding around a n epiploic appendage of ascending colon, consistent with epiploic appendagitis. The appendix is pat l. There are no pathologically enlarged lymph nodes. There is no free intraperitoneal fluid. There is mild thoracic and lumbar spondylosis. There is mild chronic anterior wedging of T11 and T12 vertebra l bodies. IMPRESSION: 1. Epiploic appendagitis of ascending colon. 2. Large sliding hiatal hernia. Reviewed, dictated and finalized at location A.
[2022-10-18 12:41] VITALS: BP 127/82; PULSE 91; RESP 18; TEMP 36.3; O2SAT 98
[2022-10-18 12:50] VITALS: BP 115/81; PULSE 73; RESP 22
--- NOTE | 2022-10-18 12:55 | ED.GENADULT ---
[facility] - General Adult General Chief complaint: Abdominal Pain Stated complaint: abd pain Time Seen by Provider: 10/18/22 12:37 Source: patient Mode of arrival: ambulatory Limitations: no limitations History of Present Illness HPI narrative: This is a 57-year-old female who presents to the ED with chief complaint of right upper quadrant abdominal pain ongoing for the past 4 days. She states it has been constant. Reports pain comes and goes in severity. Rates it a 5 out of 10 right now. She also reports nausea without vomiting. Also endorses several episodes of diarrhea over the past couple of days. She states she was seen by her PCP yesterday who told her they were concerned for acute cholecystitis and recommended going to the ED and she states that she just wanted to sleep so she waited until today. Denies fevers, chills, chest pain, shortness of breath, cough. Denies any GI bleeding symptoms. Related Data Home Medications Medication Instructions Recorded Confirmed ergocalciferol (vitamin D2) 1,250 12/24/20 12/24/20 mcg (50,000 unit) capsule fluticasone propionate 50 intranasal 12/24/20 mcg/actuation nasal spray,suspension Allergies Allergy/AdvReac Type Severity Reaction Status Date / Time Sulfa (Sulfonamide Allergy Unknown Unknown Verified 12/24/20 17:46 Antibiotics) Review of Systems Review of Systems: All systems as dictated in [facility] Surgical History Surgical History H/O hernia repair Family History Family History Sibling Cerebrovascular accident Social History Social History Smoking packs per day: 1 Smoking cigarettes per day: 20.0 Years smoked: 30 Smoking pack-years: 30.00 Smoking status: Current every day smoker Gender identity (if verbalized by the patient): Female Exam Narrative: GENERAL: Well-appearing, well-nourished, and in no acute distress. HEAD: Normocephalic, atraumatic. EYES: PERRLA and EOMI. ENT: Nares clear, no rhinorrhea or epistaxis. Mucous membranes moist. Oropharynx without tonsillar hypertrophy exudate or other lesions. NECK: Supple. No adenopathy or masses. CHEST: No respiratory distress. Clear to auscultation. No wheezes rales or rhonchi HEART: Regular rate and rhythm. No murmur heard. Normal peripheral pulses. ABDOMEN: Positive Villela sign. Negative McBurney's point. Negative peritoneal signs. Soft, otherwise nontender, nondistended, normal active bowel sounds. MSK: Normal range of motion. No edema. SKIN: Warm, dry, no rash. NEURO: Alert and oriented x3. No focal deficits. PSYCH: Normal mood and affect. Course Vital Signs Vital signs: Vital Signs Temperature 97.4 F L 10/18/22 12:41 Pulse Rate 91 10/18/22 12:41 Respiratory Rate 18 10/18/22 12:41 Blood Pressure 127/82 10/18/22 12:41 Pulse Oximetry 98 10/18/22 12:41 Oxygen Delivery Room Air 10/18/22 12:41 Temperature 98.0 F 10/18/22 14:20 Pulse Rate 59 L 10/18/22 14:20 Respiratory Rate 18 10/18/22 14:20 Blood Pressure 102/64 10/18/22 14:20 Pulse Oximetry 95 10/18/22 14:20 Oxygen Delivery Room Air 10/18/22 12:41 Medical Decision Making MDM Narrative Medical decision making narrative: This is a 57-year-old female who presents to the ED with chief complaint of right upper quadrant pain ongoing for the past 4 to 5 days vitals are normal. Exam shows right-sided tenderness in the right lower quadrant and right upper quadrant. Lab work is grossly unremarkable. UA negative. CT scan shows evidence of epiploic appendagitis but appendicitis and cholecystitis have been ruled out. Pt will be discharged in stable condition. Return precautions given and supportive measures discussed. Pt is understanding and agreeable with plan for discharge and follow-up with PCP.
--- NOTE | 2022-10-18 12:55 | PC.NURSE ---
EDP at bedside to assess pt.
[2022-10-18 13:09] VITALS: BP 114/71; PULSE 63; RESP 15
[2022-10-18] MEDS: ONDANSETRON INJ 4 MG/2 ML VIAL IV PUSH (13:13)
[2022-10-18 13:21] LABS: Basophils Absolute Auto 0.1 K/mm3 (0.0-0.1); Basophils Percent Auto 0.6 % (0.2-1.2); Eosinophils Absolute Auto 0.3 K/mm3 (0-0.3); Eosinophils Percent Auto 2.6 % (0-4.4); Hematocrit 41.8 % (37.0-47.0); Hemoglobin 13.7 g/dL (12.0-15.0); Immature Granulocyte Absolute 0.03 K/mm3 (0.00-0.031); Immature Granulocyte Percent A 0.3 % (0-0.5); Lymphocytes Absolute Auto 2.68 K/mm3 (0.9-3.2); Lymphocytes Percent Auto 27.5 % (18.3-44.2); Mean Corpuscular HGB Conc 32.8 g/dl (32-36); Mean Corpuscular Hemoglobin 31.6 pg (26-34); Mean Corpuscular Volume 96.5 fl (80-100); Mean Platelet Volume 10.6 fl (7.4-10.4); Monocytes Absolute Auto 0.7 K/mm3 (0.1-0.6); Monocytes Percent Auto 7.4 % (2.6-8.5); Neutrophils Percent Auto 61.6 % (45.5-73.1); Platelet Count Result 325 k/mm3 (150-375); Red Blood Count 4.33 M/mm3 (4.2-5.4); Red Cell Distribution Width 12.8 % (11.5-14.5); White Blood Count 9.8 K/mm3 (4.5-10.0)
[2022-10-18 13:34] LABS: Alanine Aminotransferase 21 U/L (6-35); Albumin Level 3.9 g/dL (3.5-5.1); Alkaline Phosphatase 72 U/L (38-126); Anion Gap 4 mmol/L (8-16); Aspartate Amino Transferase 22 U/L (14-36); Bilirubin,Total 0.5 mg/dL (0.2-1.3); Blood Urea Nitrogen 6 mg/dL (7-17); Calcium 8.7 mg/dL (8.4-10.2); Carbon Dioxide 23 mmol/L (22-30); Chloride 108 mmol/L (98-107); Estimated Glomerular Filt Rate > 60; Glucose 105 mg/dL (65-110); Lipase 241 U/L (23-300); Potassium 4.1 mmol/L (3.4-5.0); Sodium 135 mmol/L (137-145)
[2022-10-18 13:36] LABS: INR 0.9; Prothrombin Time 12.5 Seconds (11.1-14.7)
[2022-10-18 13:50] LABS: Appearance Urine Clear (Clear); Bilirubin Urine Negative (Negative); Blood Urine Negative (Negative); Color Urine Yellow (Yellow); Glucose Urine UA Negative (Negative); Ketones Urine Negative (Negative); Leukocyte Esterase Ur Negative LEU/UL (Negative); Nitrate Urine Negative (Negative); Protein Urine Negative (Negative); Specific Grav Ur 1.003 (1.001-1.035); Urobilinogen Urine 0.2 mg/dL (<2.0); pH Urine 6.5 (5.0-9.0)
[2022-10-18 13:51] LABS: Add Urine Microscopic? NO
[2022-10-18 14:20] VITALS: BP 102/64; PULSE 59; RESP 18; TEMP 36.7; O2SAT 95
== END 2022-10-18 14:44 | disposition home or self-care (01) ==
PROVIDERS: Emergency Provider Physician Assistant; PCP Emergency Medicine
DX: K63.89 Other specified diseases of intestine (principal); F17.210 Nicotine dependence, cigarettes, uncomplicated
CPT/HCPCS: 36415; 74177; 80048; 80076; 81003; 83690; 85025; 85610; 96374; 99284; J2405; Q9967

== ENCOUNTER 2023-01-01 18:40 | Emergency (ER) | payer OTHER, SELFPAY ==
--- NOTE | ~2023-01-01 | XR_ITS ---
EXAM: XR toe 5th LT min 2V DATE: 01/01/2023 19:01 HISTORY: stubbed toe . COMPARISON: None available. FINDINGS: Normal mineralization. Nondisplaced transverse fracture of the middle/distal phalange of t he left fifth digit. Left fifth middle and distal phalange fusion. No lytic or blastic lesion. Joint spaces and physes are maintained. No erosion or periosteal change. Soft tissues within normal limits. IMPRESSION: Nondisplaced transverse fracture of the fused left fifth middle/distal phalange. Reviewed, dictated and finalized at location K. IMPRESSION: Nondisplaced transverse fracture of the fused left fifth middle/dis [place] phalange.
[2023-01-01 19:03] VITALS: BP 126/80; PULSE 116; RESP 18; TEMP 37; O2SAT 98
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
== END 2023-01-01 19:45 | disposition home or self-care (01) ==
PROVIDERS: Emergency Provider Nurse Practitioner; PCP Emergency Medicine
DX: S92.525A Nondisplaced fracture of middle phalanx of left lesser toe(s), initial encounter for closed fracture (principal); S92.535A Nondisplaced fracture of distal phalanx of left lesser toe(s), initial encounter for closed fracture; W22.8XXA Striking against or struck by other objects, initial encounter; F17.210 Nicotine dependence, cigarettes, uncomplicated
CPT/HCPCS: 73660; 99214; G0463

== ENCOUNTER 2023-03-02 14:22 | Emergency (ER) | payer OTHER, SELFPAY ==
[2023-03-02 14:35] VITALS: BP 117/77; PULSE 112; RESP 16; TEMP 36.4; O2SAT 98
--- NOTE | 2023-03-02 15:13 | ED.EAR ---
HPI - Ear Problem General Chief complaint: Ear Stated complaint: Left Ear Irritation Time Seen by Provider: 03/02/23 15:13 Source: patient, RN notes reviewed and old records reviewed Mode of arrival: ambulatory Limitations: no limitations History of Present Illness HPI Narrative: 58-year-old female presents to the [facility] with complaints of left ear pain. States that she saw her primary care provider and was prescribed Augmentin but the use still having left ear pain. Related Data Home Medications Medication Instructions Recorded Confirmed calcium carbonate 500 mg-vitamin tablet PO 03/02/23 03/02/23 D3 15 mcg (600 unit) tablet Allergies Allergy/AdvReac Type Severity Reaction Status Date / Time Sulfa (Sulfonamide Allergy Unknown Unknown Verified 03/02/23 14:43 Antibiotics) Review of Systems Review of Systems: All systems reviewed & are unremarkable except as noted in HPI and below Constitutional: Constitutional: Reports no additional constitutional complaints Eyes: Eyes: Reports no additional eye complaints ENT: Reports as per HPI and Reports otalgia Cardiovascular: Cardiovascular: Reports no additional cardiovascular complaints, Denies chest pain and Denies dyspnea Respiratory: Respiratory: Reports no additional respiratory complaints, Denies chest congestion, Denies cough and Denies dyspnea Gastrointestinal: Gastrointestinal: Reports no additional gastrointestinal complaints, Denies abdominal pain, Denies nausea and Denies vomiting Musculoskeletal: Musculoskeletal: Reports no additional musculoskeletal complaints Integumentary/Breasts: Skin/Breast: Reports system reviewed and no additional complaints, except as docu Neurologic: Reports system reviewed and no additional complaints, except as documented Psychiatric: Psychiatric: Reports no additional psychiatric complaints Allergic/Immunologic: Allergic/Immunologic: Reports no additional allergic/immunologic complaints [facility] Surgical History Surgical History H/O hernia repair Family History Family History Sibling Cerebrovascular accident Social History Social History Smoking packs per day: 1 Smoking cigarettes per day: 20.0 Years smoked: 30 Smoking pack-years: 30.00 Smoking status: Current every day smoker Gender identity (if verbalized by the patient): Female Comments At the time of my signature, I reviewed and agree with the nursing past medical, surgical, social, and family history. There is no relevant family history pertinent to the patient complaint. Exam Const: General: cooperative, healthy appearing, comfortable, no acute distress, well developed, alert and well nourished Nutritional Appearance: well nourished Orientation/consciousness: patient oriented x3 Limitations: no limitations HENMT: Head: normal to inspection Ears: hearing grossly normal bilaterally, external ears normal, EAC's normal, mastoids normal, no periauricular adenopathy and TM abnormal bulging on the left and wth effusion serous; not erythematous and with no loss of landmarks Face/Nose/Sinus: Normal external nose present, Normal nares present, Normal nasal mucous membranes and turbinates present, normal facial exam and face symmetric Face and sinus: normal facial exam and face symmetric Mouth: Yes Normal oral and palatal mucosa present, Yes lip normal and Yes moist mucous membranes Throat: posterior oropharynx normal, uvula midline and no uvular edema Eyes: General: appearance normal, both eyes and all related structures Alignment and Position: alignment normal Periorbital: periorbital findings normal Pupils: Equal, round and reactive pupils present EOM: EOMs intact bilaterally Neck: Neck: normal visual inspection, full ROM, no lymphadenopathy and no meningeal signs Chest: Chest
== END 2023-03-02 15:27 | disposition home or self-care (01) ==
PROVIDERS: Emergency Provider Nurse Practitioner; PCP Emergency Medicine
DX: H65.02 Acute serous otitis media, left ear (principal); F17.210 Nicotine dependence, cigarettes, uncomplicated
CPT/HCPCS: 99213; G0463

== ENCOUNTER 2024-05-13 12:00 | Emergency (ER) | payer OTHER, SELFPAY ==
--- NOTE | ~2024-05-13 | XR_ITS ---
EXAMINATION: XR wrist RT min 3V DATE: 05/13/2024 12:29 INDICATION: Right wrist pain and swelling. Fall. TECHNIQUE: 4 views of right wrist were obtained. COMPARISON: None. FINDINGS: There is a fracture of radial styloid. The distal fracture fragment demonstrates 2 mm navarro r displacement. There is mild osteoarthritis of triscaphe joint and severe osteoarthritis of first ca rpometacarpal joint. IMPRESSION: 1. Radial styloid fracture. Reviewed, dictated and finalized at location B. IMPRESSION: 1. Radial styloid fracture.
[2024-05-13 12:07] VITALS: BP 106/69; PULSE 87; RESP 16; TEMP 36.9; O2SAT 96
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
== END 2024-05-13 13:30 | disposition home or self-care (01) ==
PROVIDERS: Emergency Provider Nurse Practitioner Family; PCP Emergency Medicine
DX: S52.511A Displaced fracture of right radial styloid process, initial encounter for closed fracture (principal); V18.9XXA Unspecified pedal cyclist injured in noncollision transport accident in traffic accident, initial encounter; F17.210 Nicotine dependence, cigarettes, uncomplicated
CPT/HCPCS: 29125; 73110; 99214; G0463